=== PATIENT | female | born 1990 | race Caucasian/White ===

== ENCOUNTER → 2016-10-06 | Outpatient (CLI) | payer BC, OTHER ==
[2015-10-07 09:40] VITALS: BP 128/83
[~2016-10-06] MED LIST: FAMO-63 PO; PRED20TA PO
--- NOTE | 2016-10-06 13:53 | RAD ---
DATE: 10/06/2016 EXAM: DIGITAL DIAGNOSTIC BILATERAL HISTORY: 26-year-old female with asymmetrically large left breast with bruising that clears up on its own. No history of breast surgery. The asymmetry has worsened in one year. COMPARISON: None This study was interpreted with the benefit of Computerized Aided Detection (CAD ). FINDINGS: Breast Density: SCATTERED The breast parenchyma shows scattered fibroglandular densities. Breast parenchyma level B. There is significant asymmetry between right and left breasts. No suspicious calcifications, spiculated mass or areas of architectural distortion. No skin thickening. Nodular densities in the bilateral breasts most likely intraparenchymal lymph nodes. IMPRESSION: Asymmetric volume of bilateral breasts without suspicious mass or calcifications. This is probably benign. However, malignancy such as an invasive lobular carcinoma is not ruled out. MRI is strongly recommended. Also direct comparison with prior mammogram recommended if available. BI-RADS CATEGORY: 3 PROBABLE BENIGN FINDING(S-SHORT INTERVAL FOLLOW-UP SUGGESTED RECOMMENDED FOLLOW-UP: 6M 6 MONTH FOLLOW-UP PQRS compliance statement: Patient information was entered into a reminder system with a target due date 04/08/2017 for the next mammogram. Mammography is a sensitive method for finding small breast cancers, but it does not detect them all and is not a substitute for careful clinical examination. A negative mammogram does not negate a clinically suspicious finding and should not result in delay in biopsying a clinically suspicious abnormality. "Our facility is accredited by the [employer] Mammography [employer]." SYLVIED
--- NOTE | 2016-10-07 10:05 | RAD ---
Ultrasound of bilateral breasts Indication: 26-year-old female with asymmetric breast size. Technique: Grayscale ultrasound images of the bilateral breasts obtained. Comparison: None Findings: No suspicious solid or cystic mass seen. Impression: No suspicious solid or cystic mass. BI-RADS 3: Probably benign. Six-month follow-up with mammogram only recommended.
== END | disposition home or self-care (01) ==
LOC: US 08:25
PROVIDERS: ATTEND Nurse Practitioner
DX: N64.89 Other specified disorders of breast (principal)
CPT/HCPCS: 76641; G0204; 77066

== ENCOUNTER 2016-12-25 11:01 | Emergency (ER) | payer OTHER ==
[~2016-12-25] VITALS: Ht 165.1 cm; Wt 93.7 kg
[2016-12-25] MEDS ORDERED: IV NORMAL SALINE 1,000ML 1,000 ML IV SCH (11:15)
[2016-12-25 11:47] LABS: BASO # 0.1 x10^3/uL (0.0-0.2); BASO % 1 % (0-3); EOS # 0.2 x10^3/uL (0.0-0.7); EOS % 2 % (0-3); HEMATOCRIT 40.2 % (36.0-47.0); HEMOGLOBIN 13.9 g/dL (12.0-15.5); LYMPH # 2.8 x10^3/uL (1.0-4.8); LYMPH % 34 % (24-48); MEAN CORPUSCULAR HEMOGLOBIN 31 pg (25-35); MEAN CORPUSCULAR HGB CONC 35 g/dL (31-37); MEAN CORPUSCULAR VOLUME 88 fL (79-100); MONO # 0.6 x10^3/uL (0.0-1.1); MONO % 7 % (0-9); NEUT # 4.5 x10^3uL (1.8-7.7); NEUT % 56 % (31-73); PLATELET COUNT 307 x10^3/uL (140-400); RED BLOOD COUNT 4.54 x10^6/uL (3.50-5.40); RED CELL DISTRIBUTION WIDTH 12.8 % (11.5-14.5); WHITE BLOOD COUNT 8.1 x10^3/uL (4.0-11.0)
[2016-12-25 11:57] LABS: BACTERIA,URINE MANY /HPF (0-FEW); BILIRUBIN,URINE NEG (NEG); CLARITY,URINE HAZY; COLOR,URINE YELLOW; GLUCOSE,URINE NEG (NEG); NITRITE,URINE NEG (NEG); RBC,URINE >40 /HPF (0-2); SQUAMOUS EPITHELIAL CELL,UR MANY /LPF; UROBILINOGEN,URINE 0.2 mg/dL (0.2 mg/dL)
[2016-12-25 12:00] LABS: ALBUMIN 3.8 g/dL (3.4-5.0); DIRECT BILIRUBIN 0.1 mg/dL (0.0-0.2); TOTAL BILIRUBIN 0.4 mg/dL (0.2-1.0); TOTAL PROTEIN 7.6 g/dL (6.4-8.2)
[2016-12-25 12:37] VITALS: BP 134/81
--- NOTE | 2016-12-25 12:44 | RAD ---
EXAM: Obstetrics sonogram. HISTORY: Spotting. TECHNIQUE: Transabdominal and transvaginal sonographic imaging of the pelvis was performed. COMPARISON: None. FINDINGS: The uterus measures 8.3 x 4.4 x 3.7 cm. There is an intrauterine gestational sac with mean sac diameter of 0.5 cm, corresponding with a gestational age of 5 weeks and 2 days. A yolk sac is seen. No pole is seen. The right ovary measures 3.0 x 2.1 x 1.6 cm and demonstrates normal blood flow. There is a 2.7 cm complex left ovarian cyst with internal debris. There is normal blood flow within the left ovary. IMPRESSION: 1. Single intrauterine gestational sac with a mean sac diameter corresponding with a gestational age of 5 weeks and 2 days. No pole is seen or expected to be seen in this early gestation. A short-term viability scan is recommended. 2. 2.7 cm complex left ovarian cyst, possibly containing internal hemorrhage.
--- NOTE | 2016-12-25 13:03 | PHYS DOC ---
General Chief Complaint: ABDOMINAL PAIN IN Stated Complaint: /BLEEDING & CRAMPING Time Seen by MD: 11:03 Source: patient Exam Limitations: no limitations Problems: History of Present Illness Initial Comments Patient is a 26-year-old female 5 weeks gestation 2 para 1 who comes emergency Department complaining of the left adnexa pain and spotting. Patient states her last menstrual period was November 20, 3 weeks ago she had a confirmed at [facility] and has an OB referral/appointment scheduled for January 19. She states that 2 days ago she began having left adnexal pain described as sharp and crampy, mild to moderate no relieving or exacerbating factors known. She states that today she began spotting and became concerned about the possibility of ectopic . She denies any fever chills nausea vomiting. On arrival heart rate 102, 96%, blood pressure 125/73. Timing/Duration: other Severity: moderate Modifying Factors: improves with other Associated Symptoms: other Allergies: Coded Allergies: No Known Drug Allergies (Unverified , 01/12/15) Past Medical History Medical History: no pertinent history Surgical History: tonsillectomy Psychosocial History: anxiety, depression Para: 1 : 2 Social History Smoker: quit greater than 1 year Alcohol: none Drugs: none Review of Systems Constitutional: denies chills, denies diaphoresis, denies fever, denies malaise Respiratory: denies cough, denies shortness of breath Cardiovascular: denies chest pain, denies palpitations Gastrointestinal: see HPI Genitourinary: see HPI Musculoskeletal: denies back pain, denies joint swelling, denies neck pain Psychiatric/Neurological: denies headache, denies numbness, denies paresthesia Hematologic/Lymphatic: denies blood clots, denies easy bleeding, denies easy bruising Physical Exam General Appearance: no apparent distress, obese Ear, Nose, Throat: hearing grossly normal, normal ENT inspection Neck: non-tender, supple Respiratory: normal breath sounds, no respiratory distress Cardiovascular: normal peripheral pulses, regular rate, rhythm, no edema Gastrointestinal: normal bowel sounds, soft (L adnexa TTP no r/g/mass, neg riley/mcburney, nondistended, BS nl) Back: no CVA tenderness, no vertebral tenderness Extremities: non-tender, normal inspection, no pedal edema Neurologic/Psychiatric: herbicide sprayer II-XII nml as tested, no motor/sensory deficits, alert, normal mood/affect, oriented x 3 Skin: normal color, warm/dry Orders, Labs, Meds PATIENT: KEVIN SALVADOR ACCOUNT: [id number] : 1990 LOCATION: ER AGE: 26 SEX: F EXAM STATUS: REG ER ORD. PHYSICIAN: OKSANA MUHAMMAD DO REASON: LLQ PAIN AND SPOTTING IN EARLY PROCEDURE: OB <14 WKS W/TV EXAM: Obstetrics sonogram. HISTORY: Spotting. TECHNIQUE: Transabdominal and transvaginal sonographic imaging of the pelvis was performed. COMPARISON: None. FINDINGS: The uterus measures 8.3 x 4.4 x 3.7 cm. There is an intrauterine gestational sac with mean sac diameter of 0.5 cm, corresponding with a gestational age of 5 weeks and 2 days. A yolk sac is seen. No pole is seen. The right ovary measures 3.0 x 2.1 x 1.6 cm and demonstrates normal blood flow. There is a 2.7 cm complex left ovarian cyst with internal debris. There is normal blood flow within the left ovary. IMPRESSION: 1. Single intrauterine gestational sac with a mean sac diameter corresponding with a gestational age of 5 weeks and 2 days. No pole is seen or expected to be seen in this early gestation. A short-term viability scan is recommended. 2. 2.7 cm complex left ovarian cyst, possibly containing internal hemorrhage. DICTATED AND SIGNED BY: SONIA SANTILLAN MD DATE: 12/25/16 1240 CC: COY GUZMAN APRN; OKSANA MUHAMMAD DO ~ Urine +blood. Serum HCG level c/w dates. Otherwise labs unremarkable. I discussed findings at length with the patient and her questions were answered to her satisfaction. Signs and symptoms to monitor and indications for urgent return to the department were discussed. She agrees to take it easy until Tuesday at which time she will call her PULLBOAT ENGINEER to notify her of today's visit and findings. She expressed agreement and understanding with the treatment plan and follow-up. Departure Time of Disposition: 13:01 Disposition: 01 HOME, SELF-CARE Diagnosis: Intrauterine , 2.7cm left ovarian cyst Condition: STABLE Patient Instructions: Medicines During , Ovarian Cyst Additional Instructions: Rest, no strenuous activity. Aggressive hydration to prevent dehydration. OTC tylenol as needed. Call your PULLBOAT ENGINEER Tuesday morning to notify of ultrasound findings. Follow up per their guidelines. Return to ED with new or changing symptoms. OKSANA MUHAMMAD DO Dec 25, 2016 13:03
== END 2016-12-25 13:08 | disposition home or self-care (01) ==
LOC: ER 11:01
DX: O34.81 Maternal care for other abnormalities of pelvic organs, first trimester (principal); O26.851 Spotting complicating pregnancy, first trimester; O99.341 Other mental disorders complicating pregnancy, first trimester; F41.9 Anxiety disorder, unspecified; F32.9 Major depressive disorder, single episode, unspecified; Z87.891 Personal history of nicotine dependence; Z3A.01 Less than 8 weeks gestation of pregnancy
CPT/HCPCS: 36415; 76801; 76817; 80076; 81001; 81025; 84702; 85025; 87086; 96360; 99285-25; J7030